=== PATIENT | male | born 1960 | race Caucasian/White ===

== ENCOUNTER 2019-04-20 19:01 | Emergency (ER) | payer MEDICARE, MEDICAID ==
--- NOTE | 2019-04-20 19:13 | Emergency Department Record ---
History of Present Illness - General Chief Complaint: Choking Stated Complaint: CHOKED, CPR WAS DONE Time Seen by Provider: 04/20/19 19:06 Source: Patient, Family ([employer] [facility] child [employer]) Mode of Arrival: Ambulatory Limitations: No limitations - History of Present Illness Initial Comments: 58 yo male presents for evaluation. He was eating a ham sandwich about one hour ago. He began to choke. The Heimlich maneuver was performed but unsuccessful immediately. He became blue. Chest compression were immediately performed and the ham dislodged. He returned to his baseline and ambulated into the ED. He is at his baseline. None verbal but interacts. Alert. No outward signs of trauma from chest compressions or abnormal behavior. He has a chronic eating difficulties that have been evaluated on several occasions. He normally eats food that is finely chopped. -: Hour(s) (1) Severity: Severe Quality: Other Consistency: Now resolved Improves With: Other (Resolved after CPR expelled the ham) Worsens With: Other (choking on ham) Context: Suspect foreign body (resolved) Associated Symptoms: Denies other symptoms Treatments Prior to Arrival: None - Related Data Home Medications Medication Instructions Recorded Confirmed Last Taken Citalopram Hydrobromide [Celexa] 1 tab PO DAILY 04/20/19 04/20/19 04/20/19 Diazepam [Valium] 5 mg PO ASDIR PRN 04/20/19 04/20/19 Unknown Lamotrigine [Lamictal] 100 mg PO DAILY 04/20/19 04/20/19 04/20/19 Lamotrigine [Lamictal] 200 mg PO QHS 04/20/19 04/20/19 04/20/19 Oxybutynin Chloride [Ditropan Xl] 1 tab PO DAILY 04/20/19 04/20/19 04/20/19 Risperidone [Risperdal] 1 tab PO DAILY 04/20/19 04/20/19 04/20/19 Risperidone [Risperdal] 1 tab PO QHS 04/20/19 04/20/19 04/20/19 Venlafaxine HCl [Effexor Xr] 1 tab PO DAILY 04/20/19 04/20/19 04/20/19 Allergies Allergy/AdvReac Type Severity Reaction Status Date / Time starwberries Allergy PT UNSURE Uncoded 04/20/19 19:11 OF REACTION Review of Systems Constitutional: Denies: Chills, Fever, Malaise, Weakness Eyes: Denies: Eye discharge ENT: Denies: Congestion, Throat pain Respiratory: Reports: Cough, Dyspnea Cardiovascular: Denies: Chest pain, Dyspnea on exertion, Edema, Palpitations, Syncope Endocrine: Denies: Fatigue Gastrointestinal: Denies: Abdominal pain, Diarrhea, Nausea, Vomiting Genitourinary: Denies: Dysuria, Frequency, Hematuria Musculoskeletal: Denies: Arthralgia, Back pain, Myalgia Skin: Reports: Change in color. Denies: Bruising, Rash Neurological: Denies: Confusion (at baseline) Psychiatric: Denies: Anxiety Hematological/Lymphatic: Denies: Easy bleeding, Easy bruising Physical Exam - General General Appearance: Alert, Cooperative, No acute distress, Other (Ambulated in without any difficulty, no distress) - Head Head exam: Atraumatic, Normal inspection - Eye Eye exam: Normal appearance. negative: Conjunctival injection - ENT ENT exam: Normal exam Ear exam: Normal external inspection Nasal Exam: Normal inspection Mouth exam: Normal external inspection Teeth exam: Dental caries (chronic) Throat exam: Normal inspection - Neck Neck exam: Normal inspection, Full ROM. negative: Tenderness - Respiratory Respiratory exam: Normal lung sounds bilaterally. negative: Accessory muscle use, Decreased breath sounds, Prolonged expiratory, Rhonchi, Stridor, Wheezes - Cardiovascular Cardiovascular Exam: Regular rate, Normal rhythm, Normal heart sounds - GI/Abdominal GI/Abdominal exam: Soft. negative: Tenderness - Rectal Rectal exam: Deferred - exam: Deferred - Extremities Extremities exam: Normal inspection - Neurological Neurological exam: Alert - Psychiatric Psychiatric exam: Normal affect, Normal mood - Skin Skin exam: Dry, Intact, Normal color, Warm Course - Reevaluation(s) Reevaluation #1: 04/20/19 19:12 The patient is at his baseline The FB seems clinically to be resolved His breathing is normal, no cough, no signs of pain or shortness of breath Since brief chest compression were performed he will be observed for 2 sets of enzymes PO challenge will be attempted as well 04/20/19 20:03 The labs were reviewed No acute changes on the CBC, CMP or Troponin The patient remains asymptomatic EKG #1: 19:43 Rate: 96 Rhythm: sinus [place]: normal Intervals: Qtc 536, ST segments: Non specific anterior ST changes No old The patient continues to do well at his baseline No ill effects obvious after the choking event He tolerated PO normally 04/20/19 21:04 04/20/19 22:31 The Repeat Troponin was normal The patient has remained asymptomatic and tolerated food We discussed home care and reasons to return to the ED 04/21/19 00:43 Medical Decision Making - Lab Data Result diagrams: 04/20/19 19:21 04/20/19 19:21 Disposition Disposition: Discharge Clinical Impression: Choking due to food (regurgitated) Qualifiers: Encounter type: initial encounter Qualified Code(s): T17.320A - Food in larynx causing asphyxiation, initial encounter Disposition: Home, Self-Care Condition: (1) Good Instructions: Performing the Heimlich Maneuver (ED) Additional Instructions: Continue the mechanical soft diet for Mr. Alfaro Return or call your doctor if Mr Alfaro has any new issues or problems with swallowing Forms: Patient Portal Access Time of Disposition: 22:32 Quality - Quality Measures Quality Measures: N/A - Blood Pressure Screening Does Patient Have Any of the Following: No Blood Pressure Classification: Pre-Hypertensive BP Reading Systolic Measurement: 122 Diastolic Measurement: 81 Screening for High Blood Pressure: < Pre-Hypertensive BP, F/U Documented > [[id number]] Pre-Hypertensive Follow-up Interventions: Referral to alternative/primary care provider.
[2019-04-20 19:27] LABS: ABSOLUTE NEUTROPHIL COUNT 4.07; BASO % 0.5 % (0-6); GRAN % 69.6 % (47-80); HEMOGLOBIN 14.2 gm/dl (14.0-18.0); MEAN CELL VOLUME 88.4 fl (81-97); MEAN CORPUSCULAR HEMOGLOBIN 29.9 pg (27-33); MEAN CORPUSCULAR HGB CONC 33.8 g/dl (32-36); MEAN PLATELET VOLUME 11.4 fl (7.4-10.4); MONO % 8.9 % (0-9); PLATELET COUNT 181 K/uL (130-400); RED BLOOD COUNT 4.75 M/uL (4.40-5.70); RED CELL DISTRIBUTION WIDTH 12.9 % (11.5-14.5); WHITE BLOOD COUNT W/O DIFF 5.9 K/uL (4.2-12.2)
--- NOTE | 2019-04-20 19:40 | RADIOLOGY REPORT ---
EXAMINATION: CHEST 2 VIEWS EXAM DATE: 04/20/2019 7:34 PM TECHNIQUE: Frontal and lateral views of the chest INDICATION: choked, got CPR, spit out ham COMPARISON: None FINDINGS: The cardiomediastinal silhouette is normal. The lungs are underinflated and the diaphragms are elevated.. No evidence of pneumonia or pulmonary e sachin. No pneumothorax or pleural effusion. There is anterior wedging of T12. The margins appear corticated. There is generalized osteopenia. IMPRESSION: 1. No acute pulmonary process. 2. Anterior wedging of T12 is likely chronic. If indicated, this could be confirmed with CT. Dictated by: Tomas Burroughs MD on 04/20/2019 7:36 PM. .
[2019-04-20 19:43] LABS: BLOOD UREA NITROGEN 20 mg/dL (6-20); CREATININE 0.8 mg/dL (0.7-1.2); EST GLOMERULAR FILTRATION RATE > 60 mL/min
[2019-04-20 19:44] LABS: TOTAL PROTEIN 6.9 g/dL (6.6-8.7)
[2019-04-20 19:46] LABS: GLUCOSE,RANDOM 128 mg/dL (74-109)
[2019-04-20 19:48] LABS: ALT/SGPT 25 U/L (<41)
[2019-04-20 19:49] LABS: ALB/GLOB RATIO 1.6 (1.1-1.8); ALBUMIN 4.2 g/dL (4.0-5.0); ALKALINE PHOSPHATASE 70 U/L (40-129); AST/SGOT 22 U/L (10.0-50.0)
== END 2019-04-20 22:40 | disposition home or self-care (01) ==
LOC: ER 19:01
DX: T17.320A Food in larynx causing asphyxiation, initial encounter (principal); X58.XXXA Exposure to other specified factors, initial encounter; Y92.090 Kitchen in other non-institutional residence as the place of occurrence of the external cause
CPT/HCPCS: 71046; 80053; 84484; 85025; 93005; 93010; 99284